=== PATIENT | female | born 1955 | race Caucasian/White ===

== ENCOUNTER 2023-07-03 08:45 | Day surgery (SDC) | payer OTHER ==
[~2023-07-03 08:45] MED LIST: Lactated Ringers 1,000 ML IV SCH; Morphine 8 MG, EPINEPHrine 0.3 MG, Cefuroxime 750 MG, Ketorolac 30 MG, Sodium Chloride ... PRN; Sodium Chloride 0.9% 10 ML Syringe FLUSH PRN; Sodium Chloride 0.9% 10 ML Syringe FLUSH SCH
[2023-07-03] MEDS ORDERED: Tranexamic Acid 1,000 MG/10 ML Vial ONE (10:01)
[2023-07-03] MEDS ORDERED: Vancomycin 1 GM SDV ONE (10:01)
[2023-07-03] MEDS ORDERED: Ropivacaine 0.5% 5 MG/ML 30 ML SDV ONE (10:10)
[2023-07-03] MEDS ORDERED: Ondansetron 4 MG/2 ML SDV IVPUSH PRN (10:35)
[2023-07-03] MEDS ORDERED: fentaNYL 100 MCG/2 ML SDV IVPUSH PRN (10:35)
[2023-07-03] MEDS ORDERED: HYDROmorphone 0.5 MG/0.5 ML Syringe IVPUSH PRN (10:35)
[2023-07-03] MEDS ORDERED: Naloxone 0.4 MG/ML SDV IVPUSH PRN (10:35)
[2023-07-03] MEDS ORDERED: Midazolam 1 MG/ML 2 ML SDV ONE (10:37)
[2023-07-03] MEDS ORDERED: Lidocaine 1% 6 ML ONE (10:40)
[2023-07-03] MEDS ORDERED: Propofol 200 MG/20 ML SDV ONE ×2 (10:40→10:41)
[2023-07-03] MEDS ORDERED: ceFAZolin 2 GM Vial ONE (11:43)
[2023-07-03] MEDS ORDERED: Ketorolac 30 MG/ML SDV ONE (12:03)
[2023-07-03] MEDS ORDERED: Ondansetron 4 MG/2 ML SDV ONE (12:03)
[2023-07-03] MEDS ORDERED: Lactated Ringers 1,000 ML ONE (12:42)
== END 2023-07-03 16:40 | disposition home or self-care (01) ==
LOC: JD.SDS 08:45
PROVIDERS: ATTEND Orthopaedic Surgery
DX: M17.12 Unilateral primary osteoarthritis, left knee (principal); I10 Essential (primary) hypertension; E78.00 Pure hypercholesterolemia, unspecified; K21.9 Gastro-esophageal reflux disease without esophagitis; E66.9 Obesity, unspecified; Z68.38 Body mass index [BMI] 38.0-38.9, adult; Z87.891 Personal history of nicotine dependence; Z79.82 Long term (current) use of aspirin; Z79.899 Other long term (current) drug therapy
CPT/HCPCS: 73560-26-LT; 73560-LT; 97110-GP; 97116-GP; 97161-GP; C1713; C1776; J0171; J0690; J0697; J1885; J2250; J2270; J2405; J2704; J2795; J3370; J3490; J7030; J7120